=== PATIENT | female | born 1950 | race Caucasian/White ===

== ENCOUNTER → 2016-11-13 | Outpatient (CLI) | payer OTHER | LOC: MAMO 11-12 08:00 | DX: Z12.31 Encounter for screening mammogram for malignant neoplasm of breast (principal) | CPT/HCPCS: G0202 ==

== ENCOUNTER 2020-08-01 17:01 | Emergency (ER) | payer MEDICARE ==
[~2020-08-01 17:01] MED LIST: ASPIR 8181 MG PO; B12 ACTIVE1000 MCG PO; CLARITIN10 M2 PO; COLACE 100MG C100 MG PO; COUMADIN4 MG PO; CRESTOR 10 MG T10 MG PO; ELIQUIS 2.5 MG2.5 MG PO; FIBER500 MG PO; PRENATABS FA T1 EACH PO; TOPROL XL100 MG PO; WELCHOL 625 MG625 MG PO
== END 2020-08-01 20:00 | disposition left against medical advice (07) ==
LOC: ER1 17:01
DX: D64.9 Anemia, unspecified (principal); Z53.21 Procedure and treatment not carried out due to patient leaving prior to being seen by health care provider
CPT/HCPCS: J7050

== ENCOUNTER 2020-08-02 09:00 | Emergency (ER) | payer MEDICARE ==
[2020-08-02 09:42] LABS: RED BLOOD COUNT 4.16 M/UL (4.00-5.10); WHITE BLOOD COUNT 7.4 K/UL (4.5-11.0)
[2020-08-02 09:51] LABS: HEMOGLOBIN 6.9 gm/dl (12.3-15.3)
[2020-08-02 10:06] LABS: BUN/CREATININE RATIO 17 (0-10)
[2020-08-02 16:32] LABS: HEMOGLOBIN 7.9 gm/dl (12.3-15.3)
== END 2020-08-02 17:05 | disposition home or self-care (01) ==
LOC: ER1 09:00
PROVIDERS: Emergency Medicine; Physician Assistant
DX: D64.9 Anemia, unspecified (principal); I10 Essential (primary) hypertension; Z79.01 Long term (current) use of anticoagulants
CPT/HCPCS: 36430; 80053; 82272; 82550; 82553; 83874; 84484; 85014; 85018; 85025; 85610; 86850; 86900; 86901; 86920; 93005; 99283; J7050; P9016

== ENCOUNTER → 2020-08-13 | Outpatient (CLI) | payer MEDICARE | LOC: KOH-I 10:32 | DX: R80.9 Proteinuria, unspecified (principal); D64.9 Anemia, unspecified; I82.4Z2 Acute embolism and thrombosis of unspecified deep veins of left distal lower extremity | CPT/HCPCS: 93970 ==

== ENCOUNTER → 2021-09-26 | Outpatient (CLI) | payer MEDICARE | LOC: HEART 5 13:43 | DX: R07.9 Chest pain, unspecified (principal); I27.20 Pulmonary hypertension, unspecified; I11.9 Hypertensive heart disease without heart failure | CPT/HCPCS: 93306 ==